=== PATIENT | female | born 1980 | race African-American/Black ===

== ENCOUNTER 2016-10-27 14:27 | Emergency (ER) | payer MEDICAID ==
[~2016-10-27] VITALS: Ht 165.1 cm; Wt 79.4 kg
[~2016-10-27 14:27] MED LIST: NKM
[2016-10-27 15:10] LABS: APPEARANCE,URINE CLEAR; KETONES,URINE NEGATIVE (NEGATIVE); LEUKOCYTE ESTERASE ,URINE NEGATIVE (NEGATIVE); NITRITE,URINE NEGATIVE (NEGATIVE); PH,URINE 6 (4.5-8.0); PROTEIN,URINE NEGATIVE (NEGATIVE); UROBILINOGEN,URINE NORMAL MG/DL (0.0-1.0)
--- NOTE | 2016-10-27 15:14 | Emergency Room Report ---
History of Present Illness General Chief Complaint: General Complaint Source: Patient Present Illness HPI 36 y/o female c/o multiple complaints. States she has had itchiness on her back x 1 week. States pruritis has been so bad that she has broken skin due to itching. States she has had exposure to scabies from her close contacts (sister and her children) who were treated for scabies and their sxs have reslolved. States there is no provoking or relieving factors despite taking over-the- counter medications and using aveno lotion for dry skin. Patient also complaints of vaginal discharge x 4-5 days. Assoc sxs include white runny water discharge w/o pruritis or vaginal irritation and crampy abd pain (like she is going through her menses). States she tried taking OTC monostat 7 w/o improvement (x 2 days) and that she denies mal odorous discharge , thick cottage cheese discharge, n/v, dysperunia or irregular menses. Patient also states she does have increased urinary frequency, urgency, nocturia and suprapubic abd pain w/o any flank pain, burning urinary pain, or hematuria for which she took Azo for w/o improvement. States that she thinks she has been urinating more because she has been increasing her water intake as well as having had ETOH last night. States she does get yeast infections when her partner climaxes in her and that they have had intercourse in the past week prior to onset of sxs. Patient denies any infidelity between herself and her partner and denies any hx of STDs in the past. Allergies: Coded Allergies: PENICILLIN (Verified Allergy, Mild, 09/28/15) Patient History Last Menstrual Period: 10/14/2016 Now: No : 5 Para: 2 Immunizations: UTD Reviewed Nursing Documentation: PMH: Agreed, PSxH: Agreed Nursing Documentation-PMH Past Medical History: No Stated History Review of Systems All Other Systems: negative except mentioned in HPI Physical Exam Vital Signs Date Time Temp Pulse Resp B/P Pulse Ox O2 Delivery O2 Flow Rate FiO2 10/27/16 14:33 98.8 85 16 104/70 100 Room Air Sp02 EP Interpretation: reviewed, normal General Appearance: no apparent distress, alert, GCS 15, non-toxic Head: normocephalic, atraumatic Eyes: bilateral eye PERRL, bilateral eye normal inspection ENT: hearing grossly normal, normal pharynx, no angioedema, normal voice Neck: full range of motion, supple/symm/no masses Respiratory: chest non-tender, lungs clear, normal breath sounds, speaking full sentences Cardiovascular #1: regular rate, rhythm, no edema Cardiovascular #2: 2+ carotid (R), 2+ carotid (L), 2+ radial (R), 2+ radial (L) , 2+ dorsalis pedis (R), 2+ dorsalis pedis (L) Gastrointestinal: normal bowel sounds, non tender, soft, non-distended, no guarding, no rebound Rectal: deferred Genitourinary: normal inspection Musculoskeletal: back normal, gait/station normal, normal range of motion, non- tender, calf tenderness Neurologic: alert, oriented x3, responsive, motor strength/tone normal, sensory intact, speech normal Psychiatric: judgement/insight normal, memory normal, mood/affect normal, no suicidal/homicidal ideation Skin: normal color, warm/dry, well hydrated, rash - with dry crusting skin on back Lymphatic: no adenopathy Medical Decision Making Diagnostic Impression: Primary Impression: Rash and nonspecific skin eruption Additional Impression: Vaginal discharge ER Course Pt. presents to the ED c/o Rash and Vag Discharge Ddx considered but are not limited to STI, UTI, candidiasis / scabies, dermatitis, viral exanthem. Vital signs: are WNL, pt. is afebrile H&PE are most consistent with Non-specific rash but will treat for scabies based on history, undetermined vaginal discharge. ORDERS: none required at this time, the diagnosis is clinical ED INTERVENTIONS: None required at this time. DISCHARGE: At this time pt. is stable for d/c to home. Will provide printed patient care instructions, and any necessary prescriptions. Care plan and follow up instructions have been discussed with the patient prior to discharge. Lab Results Impression Laboratory Tests Test 10/27/16 15:05 Urine Color Tonya Urine Appearance Clear Urine pH 6 (4.5-8.0) Urine Specific [place] 1.020 (1.005-1.035) Urine Protein Negative (NEGATIVE) Urine Glucose (UA) Negative (NEGATIVE) Urine Ketones Negative (NEGATIVE) Urine Occult Blood Negative (NEGATIVE) Urine Nitrite Negative (NEGATIVE) Urine Bilirubin Negative (NEGATIVE) Urine Ictotest Negative Urine Urobilinogen Normal MG/DL (0.0-1.0) Urine Leukocyte Esterase Negative (NEGATIVE) Urine RBC 0-2 /HPF (0 - 2) Urine WBC 0 /HPF (0 - 2) Urine Squamous Epithelial Cells Few /LPF (NONE/OCC) Urine Bacteria Few /HPF (NONE) Last Vital Signs Date Time Temp Pulse Resp B/P Pulse Ox O2 Delivery O2 Flow Rate FiO2 10/27/16 14:33 98.8 85 16 104/70 100 Room Air Status: unchanged Disposition: HOME, SELF-CARE Condition: Stable Scripts Azithromycin* (ZITHROMAX*) 250 Mg Tablet 500 MG ORAL ONCE for 1 Day, #2 TAB 0 Refills Prov: AUDREY,TAMEEM P.A. 10/27/16 Doxycycline Hyclate* (VIBRAMYCIN*) 100 Mg Capsule 100 MG ORAL EVERY 12 HOURS, #14 CAP 0 Refills Prov: AUDREYTAMEEM P.A. 10/27/16 Permethrin* (ELIMITE*) 60 Gm Cream..g. 1 APPLIC TOPIC ONCE, #60 GM 0 Refills Apply cream from head to toe; leave on for 8-14 hours before washing off with water; may reapply in 1 week if live mites appear. Prov: AUDREY,TAMEEM P.A. 10/27/16 BARBIE VENTURA P.A. Oct 27, 2016 15:14
[2016-10-27 15:18] LABS: BACTERIA,URINE FEW /HPF; ICTOTEST NEGATIVE; RBC,URINE 0-2 /HPF (0 - 2); SQUAMOUS EPITHELIAL CELL,UR FEW /LPF (NONE/OCC); WBC,URINE 0 /HPF (0 - 2)
[2016-10-27] MEDS ORDERED: Lidocaine 1% MPF 10mg/ml 5ml ONE (15:51)
[2016-10-27] MEDS ORDERED: VIBRAMYCIN100 MG ORAL (15:52)
[2016-10-27] MEDS ORDERED: PERMETHRIN60 GM TOPIC (15:52)
[2016-10-27] MEDS ORDERED: AZITHROMYCIN250 MG ORAL (15:52)
[2016-10-27 16:00] VITALS: BP_SYST 104; BP_SYST 111; BP_DIAS 70; BP_DIAS 72
== END 2016-10-27 16:00 | disposition home or self-care (01) ==
LOC: EMR 15:05
DX: R21 Rash and other nonspecific skin eruption (principal); N89.8 Other specified noninflammatory disorders of vagina; Z88.0 Allergy status to penicillin
CPT/HCPCS: 81001; 96372; 99283; J0696

== ENCOUNTER 2018-05-31 11:22 | Emergency (ER) | payer MEDICAID, OTHER ==
[~2018-05-31] VITALS: Ht 165.1 cm; Wt 81.6 kg
[~2018-05-31 11:22] MED LIST changes: +AZITHROMYCIN250 MG ORAL; +PERMETHRIN60 GM TOPIC; +VIBRAMYCIN100 MG ORAL
[2018-05-31] MEDS ORDERED: CYCLOBENZAPRINE10 MG ORAL (11:55)
[2018-05-31 12:08] VITALS: BP 114/77
--- NOTE | 2018-06-05 07:26 | Emergency Room Report ---
History of Present Illness General Chief Complaint: Lower Extremity Injury Source: Patient Present Illness HPI Patient is a 38-year-old female who presented after increased right lower extremity swelling as well as discomfort. Patient gradual onset of symptoms. Patient reports having no recent trauma. She reports having episodes of worsening pain. She denies any fever. She denies any numbness to her extremities. Allergies: Coded Allergies: PENICILLIN (Verified Allergy, Mild, 09/28/15) Patient History Last Menstrual Period: 05/31/18 Reviewed Nursing Documentation: PMH: Agreed; PSxH: Agreed Nursing Documentation-PMH Past Medical History: No Stated History Review of Systems All Other Systems: negative except mentioned in HPI Physical Exam General Appearance: well appearing, no apparent distress, alert, GCS 15 Head: normocephalic, atraumatic ENT: hearing grossly normal, normal voice Neck: full range of motion, supple Respiratory: no respiratory distress, speaking full sentences Gastrointestinal: normal inspection, normal bowel sounds, non tender, soft Musculoskeletal: normal inspection, no calf tenderness Neurologic: normal inspection, alert, oriented x3, responsive, emblem fuser tender III-XII nml as tested, normal gait Psychiatric: mood/affect normal Skin: no rash Medical Decision Making Diagnostic Impression: Primary Impression: Leg cramps Additional Impression: Varicose vein of leg ER Course Patient presented for right lower extremity pain. Differential diagnosis included but was not limited to fracture, contusion, vascular insufficiency, aortic aneurysm, cellulitis. The patient appears to have some venous insufficiency to the right lower extremity. Patient does not appear to require any laboratory testing at this time. The patient's calf circumference appears to be equal to other extremity.The patient was advised use of support hose.The patient is advised to follow up with primary care doctor in 1-2 days. Patient is advised to return if any worsening condition or if any changes in status that are concerning. This report is dictated with [employer] senior compensation consultant software which may occasionally lead to discrepancies related to use of this software. Status: improved Disposition: HOME, SELF-CARE Condition: Stable Scripts Cyclobenzaprine Hcl* (FLEXERIL*) 10 Mg Tablet 10 MG ORAL THREE TIMES A DAY, #14 TAB Prov: Lee Tafoya MD 05/31/18 Referrals: [facility] (PCP) Patient Instructions: Varicose Veins Lee Tafoya MD Jun 05, 2018 07:26
== END 2018-05-31 12:08 | disposition home or self-care (01) ==
LOC: EMR 11:38
DX: I83.891 Varicose veins of right lower extremity with other complications (principal); I87.2 Venous insufficiency (chronic) (peripheral); M79.661 Pain in right lower leg; R25.2 Cramp and spasm; R07.9 Chest pain, unspecified; Z88.0 Allergy status to penicillin
CPT/HCPCS: 99283

== ENCOUNTER 2019-09-14 12:55 | Emergency (ER) | payer OTHER ==
[~2019-09-14] VITALS: Ht 162.6 cm; Wt 90.7 kg
[~2019-09-14 12:55] MED LIST changes: +CYCLOBENZAPRINE10 MG ORAL
--- NOTE | 2019-09-14 13:30 | NUR ---
ED Nurse Note: Pt walked into ED from home c/o RLE pain for 3 days 05/29. No visible redness, not hot to touch. Pt denies numbness/tingling. VSS. No acute distress.
[2019-09-14] MEDS ORDERED: Xarelto 10mg tab ORAL SCH (14:00)
--- NOTE | 2019-09-14 14:22 | Diagnostic Imaging Report ---
Indication: Right lower extremity pain and swelling. Technique: Duplex Doppler imaging performed from the right common femoral vein to the popliteal vein. FINDINGS: There is right posterior tibial and peroneal vein thrombosis below the knee. There is no thrombus in the popliteal vein. Normal compressibility demonstrated from the common femoral vein to the popliteal vein. Respiratory phasicity and good augmentation demonstrated on waveform analysis. There is no evidence of thrombosis. IMPRESSION: Acute thrombosis of the posterior tibial and peroneal veins below the knee. No evidence of deep venous thrombosis within the lower extremity otherwise.
--- NOTE | 2019-09-14 14:32 | Diagnostic Imaging Report ---
Indication: right leg pain Comparison: None Findings: Two views of the right tibia and fibula were obtained. No acute fracture, malalignment, or periosteal reaction are identified. Soft tissues are unremarkable. Impression: Negative examination of the tibia and fibula
[2019-09-14 14:48] LABS: BASOPHILS % (AUTO) 0.9 % (0.0-2.0); EOSINOPHILS % (AUTO) 2.2 % (0.0-3.0); HEMATOCRIT 48.7 % (37.0-47.0); HEMOGLOBIN 15.9 G/DL (12.0-16.0); LYMPHOCYTES % (AUTO) 26.2 % (20.0-45.0); MEAN CORPUSCULAR VOLUME 84 FL (80-99); MONOCYTES % (AUTO) 8.5 % (1.0-10.0); NEUTROPHILS % (AUTO) 62.3 % (45.0-75.0); PLATELET COUNT 324 K/UL (150-450); RED BLOOD COUNT 5.81 M/UL (4.20-5.40); RED CELL DISTRIBUTION WIDTH 14.9 % (11.6-14.8); WHITE BLOOD COUNT 11.2 K/UL (4.8-10.8)
[2019-09-14 15:02] LABS: ANION GAP 11 mmol/L (5-15); BLOOD UREA NITROGEN 6 mg/dL (7-18); CALCIUM 9.3 MG/DL (8.5-10.1); CARBON DIOXIDE 25 MMOL/L (21-32); CHLORIDE 104 MMOL/L (98-107); CREATININE 0.9 MG/DL (0.55-1.30); POTASSIUM 3.8 MMOL/L (3.5-5.1); SODIUM 140 MMOL/L (136-145)
[2019-09-14 15:12] LABS: ALANINE AMINOTRANSFERASE 30 U/L (12-78); ALBUMIN 4.1 G/DL (3.4-5.0); ALBUMIN/GLOBULIN RATIO 1.1 (1.0-2.7); ALKALINE PHOSPHATASE 81 U/L (46-116); ASPARTATE AMINO TRANSFERASE 25 U/L (15-37); BILIRUBIN,TOTAL 0.5 MG/DL (0.2-1.0)
[2019-09-14 15:28] LABS: APPEARANCE,URINE CLEAR; BILIRUBIN, URINE NEGATIVE (NEGATIVE); COLOR,URINE BROWN; GLUCOSE, URINE (UA) NEGATIVE (NEGATIVE); KETONES,URINE 1+ (NEGATIVE); LEUKOCYTE ESTERASE ,URINE 1+ (NEGATIVE); NITRITE,URINE NEGATIVE (NEGATIVE); PH,URINE 6 (4.5-8.0); PROTEIN,URINE 2+ (NEGATIVE); UROBILINOGEN,URINE 8 MG/DL (0.0-1.0)
--- NOTE | 2019-09-14 15:38 | Emergency Room Report ---
History of Present Illness General Chief Complaint: Lower Extremity Injury Source: Patient Present Illness HPI 39-year-old female who is a heavy tobacco smoker and no other significant past medical history here complaining of sudden onset of right lower extremity pain rating at 10 that started 2 days ago with right femoral area now no longer hurts in the femoral area and is concentrated in the right calf rating a 10 out of 10. Patient went to her primary care provider and was told to come to the emergency room to rule out deep vein thrombosis. Patient denies fall or injury , recent travel, child delivery, control take, and pelvic or lower extremity operation. Patient elicits tightness in the right callus. Has good pulse, denies tingling and numbness. Has not taken medication for symptom relief other than Advil. Patient reports that she used to be on control but stopped taking it 6 months ago. Also reports that she used to be a heavy tobacco smoker, stopped for short time and recently resumed to be a smoker. Denies chest pain, shortness of breath, palpitation, abdominal pain, nausea or vomiting, headache and dizziness. Patient further complains of a rash that abdomen and lower back, denies anaphylaxis, coming contact with any allergens Allergies: Coded Allergies: PENICILLIN (Verified Allergy, Mild, 09/28/15) Patient History Past Medical History: see triage record Past Surgical History: unable to obtain Pertinent Family History: none Social History: Reports: smoking - daily tobacco smoke Last Menstrual Period: 09/03/19 Now: No Immunizations: UTD Reviewed Nursing Documentation: PMH: Agreed; PSxH: Agreed Nursing Documentation-PMH Past Medical History: No Stated History Review of Systems All Other Systems: negative except mentioned in HPI Physical Exam Vital Signs Date Time Temp Pulse Resp B/P (MAP) Pulse Ox O2 Delivery O2 Flow Rate FiO2 09/14/19 12:58 98.1 75 18 131/85 (100) 100 Room Air Sp02 EP Interpretation: reviewed, normal General Appearance: no apparent distress, alert, GCS 15, non-toxic Head: normocephalic, atraumatic Eyes: bilateral eye normal inspection, bilateral eye PERRL ENT: hearing grossly normal, normal pharynx, no angioedema, normal voice Neck: full range of motion, supple/symm/no masses Respiratory: chest non-tender, lungs clear, normal breath sounds, no rhonchi, no respiratory distress, no retraction, no wheezing, speaking full sentences, other - Denies pleuritic chest pain Cardiovascular #1: regular rate, rhythm, no edema, no murmur Cardiovascular #2: 2+ dorsalis pedis (R), 2+ dorsalis pedis (L) Gastrointestinal: normal bowel sounds, non tender, soft, non-distended, no guarding, no rebound Genitourinary: no CVA tenderness Musculoskeletal: back normal, normal range of motion, calf tenderness - Right lower extremity below knee, gait/station normal, non-tender Neurologic: alert, motor strength/tone normal, oriented x3, sensory intact, responsive, speech normal Psychiatric: judgement/insight normal, memory normal, mood/affect normal, no suicidal/homicidal ideation Skin: rash - Allergic ureter cardia abdominal and lower back Lymphatic: no adenopathy Medical Decision Making PA Attestation Diagnosis and treatment plans were reviewed and discussed with my supervising physician Dr. Pyle Diagnostic Impression: Primary Impression: Right leg DVT Additional Impression: Allergic urticaria ER Course 39-year-old female who is a heavy tobacco smoker and no other significant past medical history here complaining of sudden onset of right lower extremity pain rating at 10 that started 2 days ago with right femoral area now no longer hurts in the femoral area and is concentrated in the right calf rating a 10 out of 10. Patient went to her primary care provider and was told to come to the emergency room to rule out deep vein thrombosis. Patient denies fall or injury , recent travel, child delivery, control take, and pelvic or lower extremity operation. Patient elicits tightness in the right callus. Has good pulse, denies tingling and numbness. Has not taken medication for symptom relief other than Advil. Patient reports that she used to be on control but stopped taking it 6 months ago. Also reports that she used to be a heavy tobacco smoker, stopped for short time and recently resumed to be a smoker. Denies chest pain, shortness of breath, palpitation, abdominal pain, nausea or vomiting, headache and dizziness. Patient further complains of a rash that abdomen and lower back, denies anaphylaxis, coming contact with any allergens Ddx considered but are not limited to : Cellulitis, DVT, fracture versus, allergic urticaria versus scabies versus Vital signs: are WNL, pt. is afebrile H&PE are most consistent with: DVT of right lower allergic urticaria ORDERS: CBC, INR, UA, urine test, lower extremity x-ray, venous duplex ultrasound right lower extremity, Xarelto ED INTERVENTIONS: Toradol, Xarelto DISCHARGE: At this time pt. is stable for d/c to home. Will provide printed patient care instructions, and any necessary prescriptions. Care plan and follow up instructions have been discussed with the patient prior to discharge. Patient to follow-up with her primary care provider as soon as possible in 24 hours for further assessment and coagulopathy testing, if worsening symptoms return to emergency room. If chest pain, shortness of breath return to emergency room immediately. At this time d-dimer is elevated secondary to right lower extremity DVT as venous Dopplers ultrasound confirms. Patient does not have chest pain or shortness of breath no pleuritic chest pain noted and does not need to be scanned for possible pulmonary embolism. Patient to continue taking Xarelto as been prescribed. However get a phone call from a pharmacy later as Xarelto and Eliquis are not covered, and the only medication that is covered his warfarin however cannot be given right away due to the bridging. Also according to the pharmacist, Lovenox and warfarin will cover have any prior authorization, Dr. Pyle smoking (confirmed that patient needs to takes Xarelto at this time, pay out of pocket and get reimbursed for the cost by her insurance later. We cannot provide prior authorization for the insurance presented emergency department. EKG Diagnostic Results Rate: bradycardiac Rhythm: NSR ST Segments: no acute changes Other Impression no acute ST changes CT/MRI/US Diagnostic Results CT/MRI/US Diagnostic Results : Imaging Test Ordered: venous duplex US, RLE Impression DVT below knee Last Vital Signs Date Time Temp Pulse Resp B/P (MAP) Pulse Ox O2 Delivery O2 Flow Rate FiO2 09/14/19 12:58 98.1 75 18 131/85 (100) 100 Room Air Disposition: HOME, SELF-CARE Condition: Stable Scripts Hydrocortisone/Aloe (Hydrocortisone/Aloe 1% Cream*) Y Cr 1 APPLIC TOPIC Q6H PRN for Itching, #30 GM Prov: Ezra Walton 09/14/19 Rivaroxaban (XARELTO) 15 Mg Tablet 15 MG ORAL BID for 30 Days, #60 MG 0 Refills Prov: Ezra Walton 09/14/19 Referrals: [facility] (PCP) Patient Instructions: Deep Vein Thrombosis, Pulmonary Embolism, Rash Additional Instructions: Follow-up with your primary care provider for coagulopathy testing as well as further assessment of DVT take medication as directed, chest pain, shortness of breath, return to the emergency room immediately. Ezra Walton Sep 14, 2019 15:38
[2019-09-14] MEDS ORDERED: XARELTO15 MG ORAL (15:40)
--- NOTE | 2019-09-14 15:46 | NUR ---
ER DISCHARGE NOTE: Patient is cleared to be discharged per ERMD, pt is aox4, on room air, with stable vital signs. pt was given dc and prescription instructions, pt was able to verbalize understanding, pt id band and iv site removed without complications. pt is able to ambulate with steady gait. pt took all belongings. CT report and f/u with doctor explained to pt.
[2019-09-14] MEDS ORDERED: Ketorolac 30mg Inj IM ONE (16:00)
[2019-09-14] MEDS ORDERED: HYDROCORTISONE-30 GM TOPIC (16:00)
--- NOTE | 2019-09-14 16:02 | NUR ---
ED Nurse Note: pt requested prescription of ointment for rash. ERPA made aware.
[2019-09-14 16:05] VITALS: BP 122/76
--- NOTE | 2019-09-15 15:06 | Cardiology Report ---
APPROVED REPORT EKG Measurement Heart [id number] Sinus bradycardia with sinus arrhythmia Otherwise normal ECG
== END 2019-09-14 16:06 | disposition home or self-care (01) ==
LOC: EMR 13:30
DX: I82.4Z1 Acute embolism and thrombosis of unspecified deep veins of right distal lower extremity (principal); L50.0 Allergic urticaria; F17.200 Nicotine dependence, unspecified, uncomplicated; Z88.0 Allergy status to penicillin
CPT/HCPCS: 36415; 73590; 80053; 81001; 81025; 83880; 84484; 85025; 85379; 85610; 85730; 86850; 86900; 86901; 93005; 93971; 96372; 99284; J1885

== ENCOUNTER 2019-10-13 12:02 | Emergency (ER) | payer OTHER ==
[~2019-10-13] VITALS: Ht 165.1 cm; Wt 90.7 kg
[~2019-10-13 12:02] MED LIST changes: +HYDROCORTISONE-30 GM TOPIC; +XARELTO15 MG ORAL
[2019-10-13 12:03] VITALS: BP 129/92
--- NOTE | 2019-10-13 12:03 | NUR ---
ED Nurse Note: Patient came to ED from home stating that she has right-sided face numbness that started this AM. Patient states she was arguing with a family member and felt her face start to become numb. Patient also states she has had some shortness of breath, like she has to open her mouth more to get a full breath, but it is not new. Patient states her face feels less numb now. Pupils are equal and reactive to light, brisk. Bilateral hand strength is equal. No apparent neuro deficits. Patient resting in bed, on the provider relations rep, bed in lowest position.
[2019-10-13] MEDS ORDERED: Omnipaue 350mg/ml 100ml vial INJ PRN (12:30)
[2019-10-13 12:32] LABS: BASOPHILS % (AUTO) 1.3 % (0.0-2.0); EOSINOPHILS % (AUTO) 1.2 % (0.0-3.0); HEMATOCRIT 42.6 % (37.0-47.0); HEMOGLOBIN 14.1 G/DL (12.0-16.0); LYMPHOCYTES % (AUTO) 19.9 % (20.0-45.0); MEAN CORPUSCULAR VOLUME 82 FL (80-99); MONOCYTES % (AUTO) 7.9 % (1.0-10.0); NEUTROPHILS % (AUTO) 69.8 % (45.0-75.0); PLATELET COUNT 337 K/UL (150-450); RED CELL DISTRIBUTION WIDTH 14.7 % (11.6-14.8); WHITE BLOOD COUNT 11.6 K/UL (4.8-10.8)
--- NOTE | 2019-10-13 12:34 | NUR ---
ED Nurse Note: Patient went to CT
[2019-10-13 12:39] LABS: INR 1.9 (0.9-1.1)
[2019-10-13 12:43] LABS: ANION GAP 13 mmol/L (5-15); BLOOD UREA NITROGEN 9 mg/dL (7-18); CARBON DIOXIDE 21 MMOL/L (21-32); CHLORIDE 105 MMOL/L (98-107); POTASSIUM 3.5 MMOL/L (3.5-5.1); SODIUM 139 MMOL/L (136-145)
--- NOTE | 2019-10-13 12:43 | NUR ---
ED Nurse Note: Patient returned from CT
[2019-10-13 12:54] LABS: APPEARANCE,URINE CLEAR; BILIRUBIN, URINE NEGATIVE (NEGATIVE); COLOR,URINE PALE YELLOW; GLUCOSE, URINE (UA) NEGATIVE (NEGATIVE); KETONES,URINE NEGATIVE (NEGATIVE); LEUKOCYTE ESTERASE ,URINE NEGATIVE (NEGATIVE); NITRITE,URINE NEGATIVE (NEGATIVE); PH,URINE 6 (4.5-8.0); PROTEIN,URINE NEGATIVE (NEGATIVE); UROBILINOGEN,URINE NORMAL MG/DL (0.0-1.0)
[2019-10-13 12:55] LABS: ALANINE AMINOTRANSFERASE 33 U/L (12-78); ALBUMIN 4.1 G/DL (3.4-5.0); ALBUMIN/GLOBULIN RATIO 1.1 (1.0-2.7); ALKALINE PHOSPHATASE 77 U/L (46-116); ASPARTATE AMINO TRANSFERASE 30 U/L (15-37); BILIRUBIN,TOTAL 0.3 MG/DL (0.2-1.0)
--- NOTE | 2019-10-13 13:29 | Diagnostic Imaging Report ---
Indication: Headache Technique: Continuous helical CT scanning of the head was performed without intravenous contrast material. Axial and coronal 5 mm sections were generated. Radiation dose was minimized using automated exposure control Dose: Total Dose Length Product - DLP 1376.[address] Dose Index - CTDIvol(s) CC 2.7 mGy. Comparison: None FINDINGS: There is no acute intracranial hemorrhage, mass effect or cortical edema. There is no shift of midline structures. Colby-white differentiation appears preserved. The ventricles, cisterns and sulci are normal for age. Mastoid air cells are clear. Mild mucosal thickening affecting some paranasal sinuses. Imaged portions of the orbits grossly unremarkable. No focal lesions of the bony calvarium or soft tissues of the scalp are seen. IMPRESSION: No evidence of acute intracranial hemorrhage, mass effect or cortical edema. MRI may be obtained for more sensitive evaluation as clinically indicated. The CT scanner at [facility] is accredited by the [employer] and the scans are performed using protocols designed to limit radiation exposure to as low as reasonably achievable to attain images of sufficient resolution adequate for diagnostic evaluation.
[2019-10-13 14:00] VITALS: BP 124/85
--- NOTE | 2019-10-13 14:10 | NUR ---
ED Nurse Note: Patient taken to CTA
--- NOTE | 2019-10-13 14:23 | NUR ---
ED Nurse Note: Patient back from CTA
--- NOTE | 2019-10-13 15:58 | Diagnostic Imaging Report ---
Indication: Pain, shortness of breath Technique: CT pulmonary angiogram performed utilizing automated exposure control with intravenous contrast. Axial, sagittal and coronal reconstructions were obtained. 3-D volumetric reconstructions were also performed. CT dose: Total DLP 772 mGycm; CTDI vol 93.6 mGy Comparison: None Findings: No pulmonary embolism identified. Main pulmonary artery is normal in caliber. Thoracic aorta is normal in caliber. No evidence of aortic dissection. Visualized portions of the great vessels appear patent. Imaged portions of the abdominal aorta normal in caliber. Visualized portions of the visceral vessels are unremarkable. Heart size within normal limits. No pericardial effusion. Some soft tissue attenuation is noted in the anterior mediastinum most likely representing residual thymus. No pathologically enlarged hilar or mediastinal lymphadenopathy. There is no focal airspace consolidation, pleural effusion or pneumothorax. Partially imaged breast tissue grossly unremarkable. There is a small hiatal hernia. Otherwise Imaged upper abdominal structures unremarkable. There is no acute osseous abnormality IMPRESSION: * No pulmonary embolism. * No thoracic aortic aneurysm or dissection. * No focal airspace consolidation, pleural effusion or pneumothorax. The CT scanner at [facility] is accredited by the [employer] and the scans are performed using protocols designed to limit radiation exposure to as low as reasonably achievable to attain images of sufficient resolution adequate for diagnostic evaluation.
[2019-10-13 16:00] VITALS: BP 121/81
--- NOTE | 2019-10-13 16:01 | Emergency Room Report ---
History of Present Illness General Chief Complaint: Generalized Weakness Source: Patient Present Illness HPI 39-year-old female with recent history of DVT, and heavy tobacco smoke here complaining of 1 day of right sided head numbness and shortness of breath. Patient is brought in by paramedics. Reports that she had a lot of alcohol last night, and has continued to smoke tobacco. Patient is taking warfarin now for DVT. Denies abdominal pain, nausea vomiting, dizziness, head injury. Denies any drug use. Has not taken medication for symptom relief. Denies recent travel. Patient was recently seen by me end of August 2019 and was diagnosed with DVT. I started her on Xarelto however patient reports that she did not take Xarelto for 2 days it was not covered by insurance and switch to warfarin therapy doctor's recommendation. Allergies: Coded Allergies: PENICILLIN (Verified Allergy, Mild, 09/28/15) PENICILLINS (Unverified Allergy, Unknown, 10/13/19) Patient History Past Medical History: see triage record Past Surgical History: unable to obtain Pertinent Family History: none Social History: Reports: smoking Last Menstrual Period: 09/24/2019 Now: No - Unknown Immunizations: UTD Reviewed Nursing Documentation: PMH: Agreed; PSxH: Agreed Nursing Documentation-PMH Hx Cardiac Problems: No - DVT Review of Systems All Other Systems: negative except mentioned in HPI Physical Exam Vital Signs Date Time Temp Pulse Resp B/P (MAP) Pulse Ox O2 Delivery O2 Flow Rate FiO2 10/13/19 11:53 99.0 113 14 129/92 (104) 98 Room Air Sp02 EP Interpretation: reviewed, normal General Appearance: no apparent distress, alert, GCS 15, non-toxic Head: normocephalic, atraumatic Eyes: bilateral eye normal inspection, bilateral eye PERRL ENT: hearing grossly normal, normal pharynx, no angioedema, normal voice Neck: full range of motion, supple/symm/no masses Respiratory: chest non-tender, lungs clear, normal breath sounds, no rhonchi, no wheezing, speaking full sentences Cardiovascular #1: regular rate, rhythm, no edema, no murmur Cardiovascular #2: 2+ carotid (R), 2+ carotid (L), 2+ radial (R), 2+ radial (L) , 2+ dorsalis pedis (R), 2+ dorsalis pedis (L) Gastrointestinal: normal bowel sounds, non tender, soft, non-distended, no guarding, no rebound Rectal: deferred Genitourinary: normal inspection, no CVA tenderness Musculoskeletal: back normal, no calf tenderness Neurologic: alert, motor strength/tone normal, oriented x3, sensory intact, responsive, speech normal Psychiatric: judgement/insight normal, memory normal, mood/affect normal, no suicidal/homicidal ideation Skin: no rash Lymphatic: no adenopathy Medical Decision Making PA Attestation All my diagnosis and treatment plans were reviewed ad discussed with my supervising physician Dr. Farfan Diagnostic Impression: Primary Impression: Facial paresthesia Additional Impressions: History of DVT (deep vein thrombosis) Cocaine abuse ER Course 39-year-old female with recent history of DVT, and heavy tobacco smoke here complaining of 1 day of right sided head numbness and shortness of breath. Patient is brought in by paramedics. Reports that she had a lot of alcohol last night, and has continued to smoke tobacco. Patient is taking warfarin now for DVT. Denies abdominal pain, nausea vomiting, dizziness, head injury. Denies any drug use. Has not taken medication for symptom relief. Denies recent travel. Patient was recently seen by me end of August 2019 and was diagnosed with DVT. I started her on Xarelto however patient reports that she did not take Xarelto for 2 days it was not covered by insurance and switch to warfarin therapy doctor's recommendation. Ddx considered but are not limited to: MS, Angina, COPD, PE, cerebral edema, CVA , TIA Vital signs: are WNL, pt. is afebrile H&PE are most consistent with facial paresthesia, history of DVT, cocaine abuse ORDERS: EKG, Chest XR, chest pain work-up ED INTERVENTIONS: None required at this time. DISCHARGE: At this time pt. is stable for d/c to home. Will provide printed patient care instructions, and any necessary prescriptions. Care plan and follow up instructions have been discussed with the patient prior to discharge. Patient to avoid using cocaine, at this time no signs of PE or CVA or TIA noted. Patient to follow with primary care provider and continue taking warfarin. If worsening symptoms return to the emergency room EKG Diagnostic Results Rate: normal Rhythm: NSR ST Segments: no acute changes Other Impression No acute ST changes CT/MRI/US Diagnostic Results CT/MRI/US Diagnostic Results : Imaging Test Ordered: CTA chest Impression PE, all within normal limits Last Vital Signs Date Time Temp Pulse Resp B/P (MAP) Pulse Ox O2 Delivery O2 Flow Rate FiO2 10/13/19 12:03 99.0 84 14 129/92 98 Room Air Disposition: HOME, SELF-CARE Condition: Stable Referrals: [facility],REFERR[facility] (PCP) Patient Instructions: Stimulant Use Disorder-Cocaine, Weakness Additional Instructions: Follow-up with your primary care provider, it is not advised to use cocaine specially with your recent urine history of DVT and taking blood thinners. It can lead you to having a blood clot in your chest or your brain. If worsening symptoms return to emergency room. Ezra Walton Oct 13, 2019 16:01
[2019-10-13 16:10] VITALS: BP 129/92
--- NOTE | 2019-10-13 16:10 | NUR ---
ER DISCHARGE NOTE: Patient cleared for DC per Ezra CANCINO, pt AxO x 4, VSS. Patient verbalized understanding of DC instructions. IV and ID band removed. Patient able to ambulate with steady gait, took all belongings.
== END 2019-10-13 16:10 | disposition home or self-care (01) ==
LOC: EDBD 12:02 → EMR 12:30
DX: R20.2 Paresthesia of skin (principal); Z86.718 Personal history of other venous thrombosis and embolism; F14.10 Cocaine abuse, uncomplicated; F17.200 Nicotine dependence, unspecified, uncomplicated; Z88.0 Allergy status to penicillin; Z79.01 Long term (current) use of anticoagulants
CPT/HCPCS: 36415; 70450; 71275; 80053; 80307; 81003; 81025; 83880; 84484; 84702; 85025; 85610; 85730; 86850; 86900; 86901; 93005; G0480; Q9967; Z7502; 99284

== ENCOUNTER 2020-11-24 10:15 | Emergency (ER) | payer OTHER ==
[~2020-11-24] VITALS: Ht 165.1 cm; Wt 86.2 kg
[2020-11-24] MEDS ORDERED: Omnipaque 350 100ml vial INJ PRN (10:45)
--- NOTE | 2020-11-24 10:45 | Emergency Room Report ---
History of Present Illness General Chief Complaint: Chest Pain Source: Patient Present Illness HPI Patient is a 40-year-old female presents for intermittent chest discomfort for the past 2 weeks. Reports having increased pain to the center of her chest. Prior history of anticoagulant use due to DVT. Denies prior history of pulmonary embolism. Reports having some recent bloody stools. She states she occasionally drinks alcohol and had 1 drink last night. Denies any hematemesis. Denies any new leg pain or swelling. Reports having bilateral hand numbness. No recent trauma. 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 COVID-19 Screening: Negative COVID-19 COVID-19 Testing Source: [employer] Patient History Past Medical History: see triage record Reviewed Nursing Documentation: PMH: Agreed; PSxH: Agreed Nursing Documentation-PMH Past Medical History: No History, Except For Hx Cardiac Problems: No - DVT Review of Systems All Other Systems: negative except mentioned in HPI Physical Exam Vital Signs Date Time Temp Pulse Resp B/P (MAP) Pulse Ox O2 Delivery O2 Flow Rate FiO2 11/24/20 10:27 98.2 74 16 118/84 (95) 98 Room Air Sp02 EP Interpretation: reviewed, normal General Appearance: normal inspection, well appearing, no apparent distress, alert, GCS 15 Head: atraumatic ENT: normal ENT inspection, hearing grossly normal, normal voice Neck: normal inspection, full range of motion, supple, no bony tend Respiratory: normal inspection, lungs clear, normal breath sounds, no respiratory distress, no retraction, no wheezing Cardiovascular #1: regular rate, rhythm, no edema Gastrointestinal: normal inspection, normal bowel sounds, non tender, soft, no guarding, no hernia Genitourinary: no CVA tenderness Musculoskeletal: normal inspection, back normal, normal range of motion Neurologic: alert, responsive, speech normal, normal inspection Psychiatric: normal inspection, judgement/insight normal, mood/affect normal Medical Decision Making Diagnostic Impression: Primary Impression: Nonspecific chest pain ER Course Patient presents for chest pain. Differential diagnosis include was not limited to pulmonary embolism, aortic dissection, pneumonia, coronavirus infection among others. Because of complexity of patient's case laboratory tests and imaging studies were ordered. EKG interpreted by me showed normal sinus rhythm with a rate of [address] or T wave changes. Laboratory testing showed negative troponin. Patient's been having symptoms for several weeks and patient does not have any known cardiac risk factors. She is taking Eliquis. CT angiogram was ordered to evaluate for possible pulmonary embolism. Patient does have prior history of DVT. She reports being compliant with her medications. Patient's laboratory testing also showed normal hemoglobin. Patient was advised to follow-up with her primary care physician for recheck. She is to return if worse. This medical record is generated with [employer] boat patcher plastic software. There may be some boat patcher plastic discrepancies related to use of this software Labs Test 11/24/20 10:52 11/24/20 10:55 White Blood Count 8.9 K/UL (4.8-10.8) Red Blood Count 5.32 M/UL (4.20-5.40) Hemoglobin 12.4 G/DL (12.0-16.0) Hematocrit 41.6 % (37.0-47.0) Mean Corpuscular Volume 78 FL (80-99) Mean Corpuscular Hemoglobin 23.4 PG (27.0-31.0) Mean Corpuscular Hemoglobin Concent 29.9 G/DL (32.0-36.0) Red Cell Distribution Width 18.5 % (11.6-14.8) Platelet Count 418 K/UL (150-450) Mean Platelet Volume 6.0 FL (6.5-10.1) Neutrophils (%) (Auto) 55.9 % (45.0-75.0) Lymphocytes (%) (Auto) 32.3 % (20.0-45.0) Monocytes (%) (Auto) 8.4 % (1.0-10.0) Eosinophils (%) (Auto) 1.9 % (0.0-3.0) Basophils (%) (Auto) 1.5 % (0.0-2.0) Sodium Level 140 MMOL/L (136-145) Potassium Level 3.8 MMOL/L (3.5-5.1) Chloride Level 106 MMOL/L (98-107) Carbon Dioxide Level 27 MMOL/L (21-32) Anion Gap 7 mmol/L (5-15) Blood Urea Nitrogen 8 mg/dL (7-18) Creatinine 0.9 MG/DL (0.55-1.30) Estimat Glomerular Filtration Rate > 60 mL/min (>60) Glucose Level 91 MG/DL (74-106) Calcium Level 9.2 MG/DL (8.5-10.1) Total Bilirubin 0.3 MG/DL (0.2-1.0) Aspartate Amino Transf (AST/SGOT) 18 U/L (15-37) Alanine Aminotransferase (ALT/SGPT) 20 U/L (12-78) Alkaline Phosphatase 95 U/L (46-116) Troponin I 0.000 ng/mL (0.000-0.056) C-Reactive Protein, Quantitative 0.7 mg/dL (0.00-0.90) Total Protein 8.0 G/DL (6.4-8.2) Albumin 3.9 G/DL (3.4-5.0) Globulin 4.1 g/dL Albumin/Globulin Ratio 1.0 (1.0-2.7) Thyroid Stimulating Hormone (TSH) 1.389 uiU/mL (0.358-3.740) Human Chorionic Gonadotropin, Quant < 1 mIU/mL (1-6) POC Whole Blood Glucose 88 MG/DL (74-106) EKG Diagnostic Results Rate: normal Rhythm: NSR Last Vital Signs Date Time Temp Pulse Resp B/P (MAP) Pulse Ox O2 Delivery O2 Flow Rate FiO2 11/24/20 10:27 98.2 74 16 118/84 (95) 98 Room Air Status: improved Disposition: HOME, SELF-CARE Condition: Stable Scripts Acetaminophen (Acetaminophen) 500 Mg Tablet 500 MG ORAL Q4H for PAIN, #30 TAB Prov: Lee Tafoya MD 11/24/20 Omeprazole (OMEPRAZOLE) 20 Mg Capsule. 20 MG ORAL DAILY for Gerd, #30 CAP Prov: Lee Tafoya MD 11/24/20 Lee Tafoya MD Nov 24, 2020 10:45
[2020-11-24 11:07] VITALS: BP 118/84
[2020-11-24 11:11] LABS: BASOPHILS % (AUTO) 1.5 % (0.0-2.0); EOSINOPHILS % (AUTO) 1.9 % (0.0-3.0); HEMATOCRIT 41.6 % (37.0-47.0); HEMOGLOBIN 12.4 G/DL (12.0-16.0); LYMPHOCYTES % (AUTO) 32.3 % (20.0-45.0); MEAN CORPUSCULAR VOLUME 78 FL (80-99); MONOCYTES % (AUTO) 8.4 % (1.0-10.0); NEUTROPHILS % (AUTO) 55.9 % (45.0-75.0); PLATELET COUNT 418 K/UL (150-450); RED BLOOD COUNT 5.32 M/UL (4.20-5.40); RED CELL DISTRIBUTION WIDTH 18.5 % (11.6-14.8); WHITE BLOOD COUNT 8.9 K/UL (4.8-10.8)
[2020-11-24 11:20] LABS: ANION GAP 7 mmol/L (5-15); BLOOD UREA NITROGEN 8 mg/dL (7-18); CALCIUM 9.2 MG/DL (8.5-10.1); CARBON DIOXIDE 27 MMOL/L (21-32); CHLORIDE 106 MMOL/L (98-107); CREATININE 0.9 MG/DL (0.55-1.30); POTASSIUM 3.8 MMOL/L (3.5-5.1); SODIUM 140 MMOL/L (136-145)
[2020-11-24 11:33] LABS: ALANINE AMINOTRANSFERASE 20 U/L (12-78); ALBUMIN 3.9 G/DL (3.4-5.0); ALKALINE PHOSPHATASE 95 U/L (46-116); ASPARTATE AMINO TRANSFERASE 18 U/L (15-37); BILIRUBIN,TOTAL 0.3 MG/DL (0.2-1.0)
--- NOTE | 2020-11-24 12:42 | Diagnostic Imaging Report ---
Indications: headache Technique: Spiral acquisitions obtained through the brain. Angled axial and coronal 5 x 5 mm slices were reconstructed. Total dose length product 1098 mGycm. CTDI vol(s) 53 mGy. Dose reduction achieved using automated exposure control Comparison: 10/13/2019 Findings: No acute intracranial hemorrhage or edema, mass effect, or midline shift. Normal anderson-white differentiation. Visualized orbits and sinuses are unremarkable. The mastoids are clear. The calvarium is intact. No significant interval change Impression: Negative The CT scanner at [facility] is accredited by the [employer] and the scans are performed using protocols designed to limit radiation exposure to as low as reasonably achievable to attain images of sufficient resolution adequate for diagnostic evaluation.
[2020-11-24] MEDS: Ketorolac 30mg Inj IV ONE (12:45)
[2020-11-24] MEDS ORDERED: OMEPRAZOLE20 M2 ORAL (13:54)
[2020-11-24] MEDS ORDERED: ACETAMINOPHEN500 M5 ORAL (13:54)
--- NOTE | 2020-11-24 14:13 | Diagnostic Imaging Report ---
ndication: Chest pain Technique: IV administration nonionic contrast. Spiral acquisitions obtained from the lung bases to the lung apices. Multiplanar and 3-D reconstructions were generated on an integrated workstation. Total dose length product 371 mGycm. CTDIvol(s) 5, 59, 9 mGy. Dose reduction achieved using automated exposure control Comparison: 10/13/2019 Findings: There is good quality opacification of the pulmonary arteries. No intraluminal filling defects or other findings to suggest acute pulmonary embolus are identified. Normal caliber pulmonary arteries. No evidence of right ventricular dilatation. No evidence of thoracic aortic aneurysm or dissection. Normal caliber and branching anatomy of the great neck vessels. The included proximal upper abdominal visceral vessels appear normal. The lungs are clear. No infiltrates, effusions, masses, or nodules are demonstrated. No mediastinal or hilar mass or adenopathy. Normal heart size. No pericardial effusion. No axillary or chest wall mass or adenopathy demonstrated. Included upper abdominal viscera are unremarkable. No significant interim change Impression: Unremarkable exam. No evidence of acute pulmonary embolus, other acute thoracic vascular pathology, or other significant finding. The CT scanner at [facility] is accredited by the [employer] and the scans are performed using protocols designed to limit radiation exposure to as low as reasonably achievable to attain images of sufficient resolution adequate for diagnostic evaluation.
[2020-11-24 15:28] VITALS: BP 125/84
== END 2020-11-24 14:32 | disposition home or self-care (01) ==
LOC: EMR 10:44
DX: R07.9 Chest pain, unspecified (principal); Z88.0 Allergy status to penicillin; Z86.718 Personal history of other venous thrombosis and embolism
CPT/HCPCS: 70450; 71275; 80053; 82962; 84443; 84484; 84702; 85025; 86140; 93005; 96374; J1885; Q9967; Z7502; 99284